=== PATIENT | female | born 1990 | race Caucasian/White ===

== ENCOUNTER 2018-07-21 08:24 | Outpatient (CLI) | payer MEDICARE, MEDICAID, SELFPAY ==
[2018-07-21 09:42] LABS: Lithium 0.74 mmol/L (0.60-1.20)
[2018-07-21 10:02] LABS: Anion Gap 6.5 mmol/L (3-11); BUN 23 mg/dL (7-18); CO2 29.5 mmol/L (21.0-32.0); CREATININE 1.41 mg/dL (0.55-1.02); Calcium 9.4 mg/dL (8.5-10.1); Chloride 106 mmol/L (98-107); Estimated GFR 44.41 (mL/min/1.73m2); Glucose 85 mg/dL (70-100); Potassium 4.6 mmol/L (3.5-5.1); Sodium 142 mmol/L (136-145); TSH 4.15 uIU/mL (0.358-3.74)
== END 2018-07-21 08:44 ==
PROVIDERS: PCP Family Medicine; Visit Provider Psychiatry & Neurology Child & Adolescent Psychiatry
DX: F70 Mild intellectual disabilities (principal); Z51.81 Encounter for therapeutic drug level monitoring; Z79.899 Other long term (current) drug therapy
CPT/HCPCS: 36415; 80048; 80178; 84443

== ENCOUNTER 2018-10-10 10:25 | Outpatient (CLI) | payer MEDICARE, MEDICAID, SELFPAY ==
[2018-10-10 10:58] LABS: TROPONIN-I 9.7 ug/mL (4.0-12.0)
== END 2018-10-10 10:45 ==
PROVIDERS: PCP Family Medicine; Visit Provider Psychiatry & Neurology Child & Adolescent Psychiatry
DX: F70 Mild intellectual disabilities (principal); Z51.81 Encounter for therapeutic drug level monitoring; Z79.899 Other long term (current) drug therapy
CPT/HCPCS: 36415; 80156

== ENCOUNTER → 2018-10-12 10:40 | Outpatient (BNVA) | payer MEDICARE, MEDICAID, SELFPAY | PROVIDERS: PCP Family Medicine; Visit Provider Psychiatry & Neurology Neurology | DX: Q85.1 Tuberous sclerosis (principal); Z85.528 Personal history of other malignant neoplasm of kidney; Z90.5 Acquired absence of kidney | CPT/HCPCS: 99213 ==

== ENCOUNTER → 2018-11-20 10:21 | Outpatient (BNVA) | payer MEDICARE, MEDICAID, SELFPAY | PROVIDERS: PCP Family Medicine; Visit Provider Nurse Practitioner Gerontology | DX: Q85.1 Tuberous sclerosis (principal); Z85.528 Personal history of other malignant neoplasm of kidney; Z90.5 Acquired absence of kidney | CPT/HCPCS: 99214 ==

== ENCOUNTER 2018-11-27 00:24 | Outpatient (CLI) | payer MEDICARE, MEDICAID, SELFPAY ==
--- NOTE | 2018-11-27 09:54 | DI.MRI_ITS ---
SYMPTOM/DIAGNOSIS: MONITORING OF RENAL MASS, R93.5 ABDOMEN MRI: Comparison is made with 09/30/17. Pre and post contrast sequences were performed. The kidneys have somewhat enlarged and multi lobulated appearance. There are numerous small bilateral cysts. No suspicious mass is identified. There is no evidence of hydronephrosis or perinephric collection. There is scarring at the lower pole of the left kidney related to partial nephrectomy. The visualized portions of the liver, spleen, pancreas and adrenals are unremarkable. IMPRESSION: Bilateral renal cysts. No suspicious mass is identified.
[2018-11-27] MEDS: Gadoterate meglumine 20 ML VIAL 10 ML IVP (10:42)
== END 2018-11-27 00:44 ==
PROVIDERS: PCP Family Medicine; Visit Provider Nurse Practitioner Gerontology
DX: R93.5 Abnormal findings on diagnostic imaging of other abdominal regions, including retroperitoneum (principal); N28.81 Hypertrophy of kidney; N28.1 Cyst of kidney, acquired
CPT/HCPCS: 74183

== ENCOUNTER 2019-01-16 13:34 | Outpatient (REF) | payer MEDICARE, MEDICAID, SELFPAY ==
[2019-01-16 19:57] LABS: TSH (W/Ref FT4) 5.02 uIU/mL (0.358-3.74)
[2019-01-16 20:16] LABS: FREE T4 0.59 ng/dL (0.76-1.46)
[2019-01-16 22:31] LABS: Hemoglobin A1C 5.2 % (4.5-6.2)
[2019-01-18 04:58] LABS: Vitamin D 25 Total 35.3 ng/ml (30-100)
[2019-01-18 10:59] LABS: FSH 8.5 mIU/ml; Prolactin 201.5 ng/ml
== END 2019-01-16 13:54 ==
LOC: NCHCN 13:34
PROVIDERS: PCP Family Medicine; Visit Provider Family Medicine
DX: E21.3 Hyperparathyroidism, unspecified (principal); N91.0 Primary amenorrhea; Z79.899 Other long term (current) drug therapy; F31.9 Bipolar disorder, unspecified
CPT/HCPCS: 82306; 83001; 83036; 84146; 84439; 84443

== ENCOUNTER → 2019-11-26 10:33 | Outpatient (BNVA) | payer MEDICARE, MEDICAID, SELFPAY | PROVIDERS: PCP Family Medicine; Referring Provider Family Medicine; Visit Provider Psychiatry & Neurology Neurology | DX: I44.0 Atrioventricular block, first degree (principal); Q85.1 Tuberous sclerosis | CPT/HCPCS: 99213 ==

== ENCOUNTER 2019-11-29 02:09 | Outpatient (CLI) | payer MEDICARE, MEDICAID, SELFPAY | END 2019-11-29 02:29 | PROVIDERS: PCP Family Medicine; Visit Provider Psychiatry & Neurology Neurology | DX: I44.0 Atrioventricular block, first degree (principal) | CPT/HCPCS: 93005; 93010 ==

== ENCOUNTER → 2019-12-05 13:53 | Outpatient (BNVA) | payer MEDICARE, MEDICAID, SELFPAY | PROVIDERS: PCP Family Medicine; Referring Provider Family Medicine; Visit Provider Nurse Practitioner Gerontology | DX: Q85.1 Tuberous sclerosis (principal); Z85.528 Personal history of other malignant neoplasm of kidney; Z90.5 Acquired absence of kidney; R30.0 Dysuria | CPT/HCPCS: 81003; 99214 ==

== ENCOUNTER 2019-12-05 17:11 | Outpatient (REF) | payer MEDICARE, MEDICAID, SELFPAY | END 2019-12-05 17:31 | LOC: LBN 17:11 | PROVIDERS: PCP Family Medicine; Visit Provider Nurse Practitioner Gerontology | DX: R30.0 Dysuria (principal) | CPT/HCPCS: 87086 ==

== ENCOUNTER 2020-03-04 11:26 | Outpatient (REF) | payer MEDICARE, MEDICAID, SELFPAY ==
[2020-03-04 19:38] LABS: HCT 37.3 % (36.0-46.0); HGB 12.1 g/dL (11.2-15.7); MCH 31.3 pg (27.0-33.0); MCHC 32.4 % (32.0-36.0); MCV 96.6 fL (80-95); MPV 10.4 fL (8.0-11.0); Platelet Count 260 10^3/uL (130-400); RBC 3.86 10^6/uL (3.93-5.22); RDW 12.7 % (11.7-14.6); RDW-SD 45.1 fL
[2020-03-04 20:07] LABS: Hemoglobin A1C 5.2 % (3.8-5.6)
[2020-03-04 20:23] LABS: ALT 20 U/L (14-59); AST 12 U/L (15-37); Albumin 4.2 g/dL (3.4-5.0); Alkaline Phosphatase 139 U/L (46-116); Anion Gap 12.2 mmol/L (3-11); BUN 20 mg/dL (7-18); Bilirubin, Total 0.3 mg/dL (0.2-1.0); CO2 23.8 mmol/L (21.0-32.0); CREATININE 1.18 mg/dL (0.55-1.02); Calcium 8.8 mg/dL (8.5-10.1); Calculated LDL 128 mg/dL (<100); Chloride 105 mmol/L (98-107); Cholesterol 213 mg/dL (<200); Estimated GFR 53.78 (mL/min/1.73m2); Glucose 103 mg/dL (74-106); HDL Cholesterol 54 mg/dL (40-60); Potassium 4.9 mmol/L (3.5-5.1); Sodium 141 mmol/L (136-145); TSH (W/Ref FT4) 0.96 uIU/mL (0.36-3.74); Total Protein 7.2 g/dL (6.4-8.2); Triglyceride 155 mg/dL (<150)
== END 2020-03-04 11:46 ==
LOC: NCHCN 11:26
PROVIDERS: PCP Family Medicine; Visit Provider Family Medicine
DX: E03.9 Hypothyroidism, unspecified (principal); N18.3 Chronic kidney disease, stage 3 (moderate); R56.9 Unspecified convulsions; F63.89 Other impulse disorders; Z79.899 Other long term (current) drug therapy
CPT/HCPCS: 80053; 80061; 85027; 83036; 84443

== ENCOUNTER → 2020-11-24 11:02 | Outpatient (BNVA) | payer MEDICARE, MEDICAID, SELFPAY | PROVIDERS: PCP Family Medicine; Referring Provider Family Medicine; Visit Provider Psychiatry & Neurology Neurology | DX: Q85.1 Tuberous sclerosis (principal); I44.0 Atrioventricular block, first degree | CPT/HCPCS: 99215 ==

== ENCOUNTER 2020-11-24 13:17 | Outpatient (CLI) | payer MEDICARE, MEDICAID, SELFPAY ==
--- NOTE | 2020-11-24 13:30 | RT.EKG_ITS ---
APPROVED REPORT Exam: Resting ECG Reason for Exam: Tuberous sclerosis Patient Location: O HR:73 bpm ECG Measurements Heart Rate 73 AXIS IL 237 P 50 QRSd 100 QRS 55 QT 365 T 47 QTc 401 Conclusion Sinus rhythm...normal P axis, V-rate 60- 99 Prolonged IL interval...IL >210, V-rate 50- 90
== END 2020-11-24 13:18 | disposition home or self-care (01) ==
PROVIDERS: PCP Family Medicine; Visit Provider Psychiatry & Neurology Neurology
DX: Q85.1 Tuberous sclerosis (principal)
CPT/HCPCS: 99215; 93005; 93010

== ENCOUNTER → 2020-12-08 10:20 | Outpatient (BNVA) | payer MEDICARE, MEDICAID, SELFPAY | PROVIDERS: PCP Family Medicine; Referring Provider Family Medicine; Visit Provider Nurse Practitioner Gerontology | DX: Q85.1 Tuberous sclerosis (principal); Z90.5 Acquired absence of kidney; Z85.528 Personal history of other malignant neoplasm of kidney | CPT/HCPCS: 99214 ==

== ENCOUNTER 2021-01-12 02:00 | Outpatient (CLI) | payer MEDICARE, MEDICAID, SELFPAY ==
[2021-01-12 09:27] LABS: CREATININE 1.4 mg/dL (0.55-1.02); Estimated GFR 44.15 (mL/min/1.73m2)
[2021-01-12] MEDS: Gadoterate meglumine 20 ML VIAL IVP (09:46)
--- NOTE | 2021-01-12 10:00 | DI.MRI_ITS ---
Exam(s) MR ABDOMEN WO/W EXAM: MR ABDOMEN WO/W CLINICAL HISTORY: monitoring renal mass, abnl findings mri, R93.5, partial left nephrectomy 2012 TECHNIQUE: Multiplanar multisequence MRI was performed with both pre and post contrast infused seque nces. Contrast injected sequences were performed following IV injection of 20 cc of Dotarem. FINDINGS: VISUALIZED LUNG BASES: Trace pleural fluid bilaterally. There is no ascites evident. LIVER: Liver size is normal. There are no ominous focal hepatic lesions. No dilatation of intrahepa tic ducts. BILIARY: There are again noted multiple tiny calculi filling the entire gallbladder lumen, not associ ated with gallbladder wall edema nor pericholecystic fluid. The CBD is not dilated. PANCREAS: There is no evidence of pancreatic mass nor dilatation of the pancreatic duct. SPLEEN: Spleen is not enlarged and there are no intrasplenic lesions.Splenic and portal veins are pat ent ADRENALS: There are no significant adrenal masses. KIDNEYS: There are multiple small benign cysts again noted in both kidneys. The largest cyst is in t he anterior cortex of the left kidney and measures 1.3 x 1.2 cm. There is again noted scarring of th e left renal cortex from prior partial nephrectomy. No evidence of new solid mass in either kidney. Both renal veins are patent. There is no hydronephr osis nor hydroureter. ABDOMINAL AORTA: Not enlarged and there is no significant para-aortic adenopathy. ANTERIOR ABDOMINAL WALL/GI: There is no evidence of significant anterior abdominal wall hernia in the field of view of this study.Is no evidence of obvious bowel obstruction. OSSEOUS: There are no lytic osseous lesions in the field of view of this study. IMPRESSION: 1. Again noted is evidence of previous partial left nephrectomy. No evidence of recurrence solid mas s in the left kidney. Bilateral benign renal cysts are again noted. No hydronephrosis. 2. Cholelithiasis. Again noted are bundle tiny calculi in the gallbladder lumen. There is no eviden ce of acute cholecystitis nor dilatation of the biliary tree, both intra and extrahepatic. 3. No focal hepatic lesions nor splenomegaly nor adrenal masses. DATA REPOSITORY:
== END 2021-01-12 02:20 ==
PROVIDERS: PCP Family Medicine; Visit Provider Nurse Practitioner Gerontology
DX: K80.20 Calculus of gallbladder without cholecystitis without obstruction (principal); N28.1 Cyst of kidney, acquired; R93.5 Abnormal findings on diagnostic imaging of other abdominal regions, including retroperitoneum; Q85.1 Tuberous sclerosis; Z90.5 Acquired absence of kidney; Z85.528 Personal history of other malignant neoplasm of kidney
CPT/HCPCS: 74183; 82565

== ENCOUNTER 2021-04-21 15:00 | Outpatient (REF) | payer MEDICARE, MEDICAID, SELFPAY ==
--- NOTE | 2021-04-21 13:15 | PAPFT_PTH ---
PATIENT: Odette Shultz LOC: [facility]#:[id number] AGE/SX: 31/F ROOM: RE04/21/[address]: Krunal Burleson : 1990 BED: DIS: 04/21/2021 SPEC #: [id number] RECD: 04/22/21 13:05 STATUS: JOÃO RESara #: [id number] ANTONIO: 04/21/21 13:[address]: Krunal Burleson DEPT: [facility] Cytology RECD BY: Julieta Stringer Tissues: 1 - CX/ENDOCX FOR PAP SMEARS Procedures: PAP THIN PREP/[facility] Screening HPV DNA PROBE Comments: [id number]
[2021-04-21 22:07] LABS: HCT 39.7 % (36.0-46.0); HGB 12.8 g/dL (11.2-15.7); MCH 31.1 pg (27.0-33.0); MCHC 32.2 % (32.0-36.0); MCV 96.4 fL (80-95); MPV 10.3 fL (8.0-11.0); Platelet Count 268 10^3/uL (130-400); RBC 4.12 10^6/uL (3.93-5.22); RDW 12.5 % (11.7-14.6); RDW-SD 44.3 fL; WBC 9.29 10^3/uL (4.4-10.8)
[2021-04-21 22:30] LABS: ALT 22 U/L (14-59); AST 13 U/L (15-37); Albumin 4.2 g/dL (3.4-5.0); Alkaline Phosphatase 140 U/L (46-116); Anion Gap 5.6 mmol/L (3-11); BUN 16 mg/dL (7-18); Bilirubin, Total 0.2 mg/dL (0.2-1.0); CO2 29.4 mmol/L (21.0-32.0); CREATININE 1.2 mg/dL (0.55-1.02); Chloride 106 mmol/L (98-107); Glucose 93 mg/dL (74-106); Potassium 4.7 mmol/L (3.5-5.1); Sodium 141 mmol/L (136-145); TSH (W/Ref FT4) 1.79 uIU/mL (0.36-3.74); Total Protein 7.8 g/dL (6.4-8.2)
[2021-04-21 23:08] LABS: Hemoglobin A1C 5.5 % (<5.7)
== END 2021-04-21 15:01 | disposition home or self-care (01) ==
LOC: NCHCN 15:00
PROVIDERS: PCP Family Medicine; Visit Provider Family Medicine
DX: E03.9 Hypothyroidism, unspecified (principal); Z12.4 Encounter for screening for malignant neoplasm of cervix; R03.0 Elevated blood-pressure reading, without diagnosis of hypertension; Z11.51 Encounter for screening for human papillomavirus (HPV); Z01.419 Encounter for gynecological examination (general) (routine) without abnormal findings
CPT/HCPCS: 80053; 85027; 88142; 83036; 84443; 87624

== ENCOUNTER → 2021-11-23 11:01 | Outpatient (BNVA) | payer MEDICARE, MEDICAID, SELFPAY | PROVIDERS: PCP Family Medicine; Referring Provider Family Medicine; Visit Provider Psychiatry & Neurology Neurology | DX: Q85.1 Tuberous sclerosis (principal); I44.0 Atrioventricular block, first degree | CPT/HCPCS: 99214 ==

== ENCOUNTER → 2022-02-24 10:47 | Outpatient (BNVA) | payer MEDICARE, MEDICAID, SELFPAY | PROVIDERS: PCP Family Medicine; Referring Provider Family Medicine; Visit Provider Nurse Practitioner Gerontology | DX: L29.2 Pruritus vulvae (principal); Q85.1 Tuberous sclerosis; Z90.5 Acquired absence of kidney; Z85.528 Personal history of other malignant neoplasm of kidney | CPT/HCPCS: 81003; 99214 ==

== ENCOUNTER 2022-04-26 16:44 | Outpatient (REF) | payer MEDICARE, MEDICAID, SELFPAY ==
[2022-04-26 14:49] LABS: Abs Immature Grans 0.01 10^3/uL (0.0-0.06); Absolute Basophil Count 0.06 10^3/uL (0.0-0.2); Absolute Eosinophil Count 0.08 10^3/uL (0.0-0.7); Absolute Lymphocyte Count 1.28 10^3/uL (1.2-3.4); Absolute Monocyte Count 0.41 10^3/uL (0.1-0.8); Absolute Neutrophil Count 2.55 10^3/uL (1.2-6.7); Basophils % 1.4; Eosinophils % 1.8; HCT 38.9 % (36.0-46.0); HGB 12.9 g/dL (11.2-15.7); Immature Grans % 0.2; Lymphocytes % 29.2; MCH 31.9 pg (27.0-33.0); MCHC 33.2 % (32.0-36.0); MCV 96 fL (80-95); MPV 9.7 fL (8.0-11.0); Monocytes % 9.3; Neutrophils % 58.1; Platelet Count 274 10^3/uL (130-400); RBC 4.05 10^6/uL (3.93-5.22); RDW 12.5 % (11.7-14.6); RDW-SD 43.4 fL; WBC 4.39 10^3/uL (4.4-10.8)
[2022-04-26 15:17] LABS: ALT 28 U/L (14-59); AST 14 U/L (15-37); Albumin 4.2 g/dL (3.4-5.0); Alkaline Phosphatase 150 U/L (46-116); Anion Gap 7.6 mmol/L (3-11); BUN 13 mg/dL (7-18); Bilirubin, Total 0.3 mg/dL (0.2-1.0); CO2 29.4 mmol/L (21.0-32.0); CREATININE 1.3 mg/dL (0.55-1.02); Calcium 9.5 mg/dL (8.5-10.1); Calculated LDL 130 mg/dL (<100); Chloride 103 mmol/L (98-107); Cholesterol 212 mg/dL (<200); Estimated GFR 56.03 (mL/min/1.73m2); Glucose 100 mg/dL (74-106); HDL Cholesterol 65 mg/dL (40-60); Potassium 4.9 mmol/L (3.5-5.1); Sodium 140 mmol/L (136-145); TSH (W/Ref FT4) 1.39 uIU/mL (0.36-3.74); Total Protein 7.7 g/dL (6.4-8.2); Triglyceride 88 mg/dL (<150)
[2022-04-26 15:27] LABS: Hemoglobin A1C 5.7 % (<5.7)
[2022-04-26 23:28] LABS: Prolactin 149.1 ng/mL (See Note)
== END 2022-04-26 16:45 | disposition home or self-care (01) ==
LOC: NCHCN 16:44
PROVIDERS: PCP Family Medicine; Visit Provider Family Medicine
DX: E03.9 Hypothyroidism, unspecified (principal); R56.9 Unspecified convulsions; N18.30 Chronic kidney disease, stage 3 unspecified; N91.0 Primary amenorrhea; Z00.00 Encounter for general adult medical examination without abnormal findings
CPT/HCPCS: 80053; 80061; 83036; 84146; 84443; 85025

== ENCOUNTER 2022-05-03 18:44 | Outpatient (REF) | payer MEDICARE, MEDICAID, SELFPAY ==
[2022-05-03 19:48] LABS: COMMENT (LAB VIEW ONLY) 84.81 mg/dL; PROTEIN 9.2 mg/dL
== END 2022-05-03 18:45 | disposition home or self-care (01) ==
LOC: NCHCN 18:44
PROVIDERS: PCP Family Medicine; Visit Provider Family Medicine
DX: N18.30 Chronic kidney disease, stage 3 unspecified (principal)
CPT/HCPCS: 82565; 84156

== ENCOUNTER 2022-11-02 17:24 | Outpatient (REF) | payer MEDICARE, MEDICAID, SELFPAY ==
[2022-11-02 19:38] LABS: COMMENT (LAB VIEW ONLY) 14.07 mg/dL; PROTEIN < 6.0 mg/dL
== END 2022-11-02 17:25 | disposition home or self-care (01) ==
LOC: NCHCN 17:24
PROVIDERS: PCP Family Medicine; Visit Provider Family Medicine
DX: N18.30 Chronic kidney disease, stage 3 unspecified (principal)
CPT/HCPCS: 82565; 84156

== ENCOUNTER → 2022-11-22 11:13 | Outpatient (BNVA) | payer MEDICARE, MEDICAID, SELFPAY | PROVIDERS: PCP Family Medicine; Visit Provider Psychiatry & Neurology Neurology | DX: L98.9 Disorder of the skin and subcutaneous tissue, unspecified (principal); Q85.1 Tuberous sclerosis; I44.0 Atrioventricular block, first degree | CPT/HCPCS: 99214 ==

== ENCOUNTER → 2023-03-02 09:44 | Outpatient (BNVA) | payer MEDICARE, MEDICAID, SELFPAY | PROVIDERS: PCP Family Medicine; Visit Provider Nurse Practitioner Gerontology | DX: Q85.1 Tuberous sclerosis (principal); Z90.5 Acquired absence of kidney; Z85.528 Personal history of other malignant neoplasm of kidney | CPT/HCPCS: 81003; 99213 ==

== ENCOUNTER 2023-04-28 15:00 | Outpatient (REF) | payer MEDICARE, MEDICAID, SELFPAY | END 2023-04-28 15:01 | disposition home or self-care (01) | LOC: LBN 15:00 | PROVIDERS: PCP Family Medicine; Visit Provider Obstetrics & Gynecology | DX: N90.89 Other specified noninflammatory disorders of vulva and perineum (principal) | CPT/HCPCS: 87480; 87510; 87660 ==

== ENCOUNTER 2023-05-12 04:04 | Outpatient (CLI) | payer MEDICARE, MEDICAID, SELFPAY ==
[2023-05-12 11:47] LABS: Abs Immature Grans 0.01 10^3/uL (0.0-0.06); Absolute Basophil Count 0.08 10^3/uL (0.0-0.2); Absolute Eosinophil Count 0.06 10^3/uL (0.0-0.7); Absolute Lymphocyte Count 1.61 10^3/uL (1.2-3.4); Absolute Monocyte Count 0.81 10^3/uL (0.1-0.8); Absolute Neutrophil Count 5.03 10^3/uL (1.2-6.7); Basophils % 1.1; Eosinophils % 0.8; HCT 39.5 % (36.0-46.0); Immature Grans % 0.1; Lymphocytes % 21.2; MCH 31.9 pg (27.0-33.0); MCHC 32.9 % (32.0-36.0); MCV 97 fL (80-95); MPV 9.4 fL (8.0-11.0); Monocytes % 10.7; Neutrophils % 66.1; Platelet Count 278 10^3/uL (130-400); RBC 4.08 10^6/uL (3.93-5.22); RDW-SD 46.3 fL
[2023-05-12 12:02] LABS: TROPONIN-I 13.4 ug/mL (4.0-12.0)
[2023-05-12 12:07] LABS: ALT 22 U/L (14-59); AST 14 U/L (15-37); Albumin 4.1 g/dL (3.4-5.0); Alkaline Phosphatase 121 U/L (46-116); Anion Gap 7.3 mmol/L (3-11); BUN 20 mg/dL (7-18); Bilirubin, Total 0.4 mg/dL (0.2-1.0); CO2 26.7 mmol/L (21.0-32.0); CREATININE 1.3 mg/dL (0.55-1.02); Calcium 9.3 mg/dL (8.5-10.1); Chloride 101 mmol/L (98-107); Estimated GFR 55.68 (mL/min/1.73m2); Glucose 126 mg/dL (74-106); Potassium 4.6 mmol/L (3.5-5.1); Sodium 135 mmol/L (136-145); Total Protein 8.1 g/dL (6.4-8.2)
[2023-05-12 12:15] LABS: TSH (W/Ref FT4) 1.36 uIU/mL (0.36-3.74)
[2023-05-12 12:52] LABS: Hemoglobin A1C 5.6 % (<5.7)
[2023-05-12 20:28] LABS: Estradiol 27 pg/mL (See Note)
[2023-05-12 21:53] LABS: FSH 7.3 mIU/mL (See Note)
[2023-05-13 00:01] LABS: Prolactin 170.6 ng/mL (See Note)
== END 2023-05-12 04:05 | disposition home or self-care (01) ==
LOC: LBO 04:05
PROVIDERS: Obstetrics & Gynecology; PCP Family Medicine; Visit Provider Nurse Practitioner Psychiatric/Mental Health
DX: E84.9 Cystic fibrosis, unspecified (principal); R73.03 Prediabetes; N91.2 Amenorrhea, unspecified; N92.0 Excessive and frequent menstruation with regular cycle; F84.9 Pervasive developmental disorder, unspecified
CPT/HCPCS: 36415; 80053; 80156; 82670; 83001; 83036; 84146; 84443; 85025

== ENCOUNTER 2023-06-16 15:05 | Outpatient (REF) | payer MEDICARE, MEDICAID, SELFPAY ==
[2023-06-16 18:28] LABS: Abs Immature Grans 0.01 10^3/uL (0.0-0.06); Absolute Basophil Count 0.08 10^3/uL (0.0-0.2); Absolute Eosinophil Count 0.13 10^3/uL (0.0-0.7); Absolute Lymphocyte Count 1.71 10^3/uL (1.2-3.4); Basophils % 1.3; Eosinophils % 2.2; HCT 38.1 % (36.0-46.0); HGB 12.5 g/dL (11.2-15.7); Immature Grans % 0.2; Lymphocytes % 28.4; MCH 31.6 pg (27.0-33.0); MCHC 32.8 % (32.0-36.0); MCV 97 fL (80-95); MPV 10.3 fL (8.0-11.0); Monocytes % 14.9; Platelet Count 261 10^3/uL (130-400); RBC 3.95 10^6/uL (3.93-5.22); RDW 12.6 % (11.7-14.6); WBC 6.03 10^3/uL (4.4-10.8)
[2023-06-16 18:42] LABS: FREE T4 0.88 ng/dL (0.76-1.46); TSH 1.14 uIU/mL (0.36-3.74)
== END 2023-06-16 15:06 | disposition home or self-care (01) ==
LOC: NCHCN 15:05
PROVIDERS: PCP Family Medicine; Visit Provider Family Medicine
DX: E03.9 Hypothyroidism, unspecified (principal); D70.9 Neutropenia, unspecified
CPT/HCPCS: 84439; 84443; 85025

== ENCOUNTER 2023-07-01 01:41 | Outpatient (CLI) | payer MEDICARE, MEDICAID, SELFPAY ==
[2023-07-06 02:26] LABS: 17-Hydroxyprogesterone 51 ng/dL
[2023-07-06 15:39] LABS: Testosterone, Total 30 ng/dL (8-60)
[2023-07-07 16:56] LABS: Dehydroepiandrosterone (DHEA) 6.2 ng/mL (<10)
== END 2023-07-01 01:42 | disposition home or self-care (01) ==
LOC: LOS 02:05
PROVIDERS: PCP Family Medicine; Visit Provider Family Medicine
DX: E28.1 Androgen excess (principal)
CPT/HCPCS: 36415; 83498; 84403; 82626

== ENCOUNTER 2023-10-19 05:07 | Outpatient (CLI) | payer MEDICARE, MEDICAID, SELFPAY ==
[2023-10-19 16:29] LABS: Abs Immature Grans 0.02 10^3/uL (0.0-0.06); Absolute Basophil Count 0.06 10^3/uL (0.0-0.2); Absolute Eosinophil Count 0.22 10^3/uL (0.0-0.7); Absolute Lymphocyte Count 2.24 10^3/uL (1.2-3.4); Absolute Monocyte Count 0.57 10^3/uL (0.1-0.8); Basophils % 0.9; Eosinophils % 3.2; HCT 38.7 % (36.0-46.0); HGB 12.7 g/dL (11.2-15.7); Immature Grans % 0.3; Lymphocytes % 32.9; MCH 31.8 pg (27.0-33.0); MCHC 32.8 % (32.0-36.0); MCV 97 fL (80-95); MPV 9.2 fL (8.0-11.0); Monocytes % 8.4; Neutrophils % 54.3; Platelet Count 257 10^3/uL (130-400); RDW 12.4 % (11.7-14.6); RDW-SD 44.3 fL; WBC 6.81 10^3/uL (4.4-10.8)
[2023-10-19 17:05] LABS: TROPONIN-I 11.2 ug/mL (4.0-12.0)
[2023-10-19 17:06] LABS: ALT 35 U/L (14-59); AST 18 U/L (15-37); Albumin 3.5 g/dL (3.4-5.0); Alkaline Phosphatase 112 U/L (46-116); Anion Gap 9.1 mmol/L (3-11); BUN 22 mg/dL (7-18); Bilirubin, Total 0.1 mg/dL (0.2-1.0); CO2 29.9 mmol/L (21.0-32.0); CREATININE 1.2 mg/dL (0.55-1.02); Calcium 9.1 mg/dL (8.5-10.1); Chloride 103 mmol/L (98-107); Glucose 116 mg/dL (74-106); Potassium 4.2 mmol/L (3.5-5.1); Sodium 142 mmol/L (136-145); Total Protein 7.3 g/dL (6.4-8.2)
[2023-10-23 10:21] LABS: Testosterone, Total 25 ng/dL (8-60)
[2023-10-24 17:20] LABS: 17-Hydroxyprogesterone <40 ng/dL
[2023-10-25 09:30] LABS: 25-Hydroxy D Total 54 ng/mL; 25-Hydroxy D2 5.3 ng/mL; 25-Hydroxy D3 49 ng/mL
== END 2023-10-19 05:08 | disposition home or self-care (01) ==
LOC: LBO 05:07
PROVIDERS: PCP Family Medicine; Visit Provider Nurse Practitioner Psychiatric/Mental Health
DX: F70 Mild intellectual disabilities (principal); Z79.84 Long term (current) use of oral hypoglycemic drugs; E28.1 Androgen excess
CPT/HCPCS: 36415; 80053; 82306; 83498; 84403; 80156; 82626; 83036; 85025

== ENCOUNTER → 2023-12-22 09:52 | Outpatient (BNVA) | payer MEDICARE, MEDICAID, SELFPAY | PROVIDERS: PCP Family Medicine; Visit Provider Psychiatry & Neurology Neurology | DX: Q85.1 Tuberous sclerosis (principal); I44.0 Atrioventricular block, first degree | CPT/HCPCS: 99213 ==

== ENCOUNTER 2024-01-12 14:53 | Outpatient (CLI) | payer MEDICARE, MEDICAID, SELFPAY ==
--- NOTE | 2024-01-12 14:45 | RT.EKG_ITS ---
APPROVED REPORT Exam: Resting ECG Reason for Exam: FIRST DEGREE AV BLOCK MONITORING Patient Location: O HR:58 bpm ECG Measurements Heart Rate 58 AXIS OK 191 P 60 QRSd 88 QRS 47 QT 360 T 57 QTc 354 Conclusion Sinus rhythm...normal P axis, V-rate 50- 99 Probable left atrial enlargement...P >50mS, <-0.10mV V1 Otherwise normal ECG
== END 2024-01-12 14:54 | disposition home or self-care (01) ==
PROVIDERS: PCP Family Medicine; Visit Provider Psychiatry & Neurology Neurology
DX: I44.0 Atrioventricular block, first degree (principal)
CPT/HCPCS: 93005; 93010

== ENCOUNTER → 2024-01-13 00:24 | Outpatient (CLI) | payer MEDICARE, MEDICAID, SELFPAY ==
--- NOTE | 2024-01-13 | DI.US_ITS ---
Exam(s) US RENAL EXAM: US RENAL CLINICAL HISTORY: CHRONIC KIDNEY DISEASE, N18.9. TECHNIQUE: Frausto scale, color and spectral Doppler were used. COMPARISON: MR MR ABDOMEN WO/W from 01/12/2021 FINDINGS: Renal size in cm: Right: 9.6. Left: 8.2. Echogenicity: Normal. Hydronephrosis: There is mild dilatation of the left renal collecting system. Cyst or mass: There are bilateral simple renal cysts present. No follow-up is recommended. There is a question of a 2 cm masslike area in the midpole of the right kidney. This may represent normal pa renchyma. Possibility of mass cannot be excluded sonographically. Nephrolithiasis: No. Other findings: None. Bladder:Normal. Ureteral jets: Right: Visualized and unremarkable. Left: Visualized and unremarkable. Prevoid vol:178 cc Postvoid vol:61 cc Renal color flow: Symmetric and within normal limits. IMPRESSION: 1. Question of a 2 cm masslike area in the midpole of the right kidney. Further evaluation with MRI of the abdomen without and with contrast is recommended. 2. Bilateral simple renal cysts. 3. Mild dilatation of the left renal collecting system which may represent mild hydronephrosis. Unexpected findings DATA REPOSITORY:
== END ==
PROVIDERS: PCP Family Medicine; Visit Provider Student in an Organized Health Care Education/Training Program
DX: N18.9 Chronic kidney disease, unspecified (principal)
CPT/HCPCS: 76770

== ENCOUNTER → 2024-02-22 01:46 | Outpatient (CLI) | payer MEDICARE, MEDICAID, SELFPAY ==
--- NOTE | 2024-02-22 06:30 | DI.MRI_ITS ---
Exam(s) MR ABDOMEN WO/W EXAM: MR ABDOMEN WO/W CLINICAL HISTORY: monitoring renal mass,tuberous sclerosis,h/o partial nephrectomy and renal TECHNIQUE: Multiplanar multisequence MRI was performed with both pre and post contrast infused seque nces. Contrast injected sequences were performed following IV injection of 20 cc of Dotarem. COMPARISON: MR MR ABDOMEN WO/W from 01/12/2021 US US RENAL from 01/13/2024 FINDINGS: VISUALIZED LUNG BASES: Trace pleural fluid bilaterally evident. There is no ascites evident. LIVER: Normal size. There are no ominous focal hepatic lesions. No dilated intrahepatic ducts. BILIARY: There are again noted innumerable tiny calculi filling the entire gallbladder lumen, not ass ociated with obvious gallbladder wall edema nor pericholecystic fluid. The CBD is not dilated. Ther e are no obvious calculi within the nondilated CBD. The CBD is not dilated. PANCREAS: There is no evidence of pancreatic mass nor dilatation of the pancreatic duct. SPLEEN: Spleen is not enlarged and there are no intrasplenic lesions.Splenic and portal veins are pat ent ADRENALS: There are no significant adrenal masses. KIDNEYS: There are multiple small benign cortical cysts again noted in both kidneys. These benign cy sts do not require further workup. There is again noted some scarring in the left renal cortex from prior partial nephrectomy. No evidence of recurrent mass at this level. Also no evidence of solid m ass in the right kidney, given apparent findings on recent ultrasound examination. No hydronephrosis . Both renal veins are patent.. ABDOMINAL AORTA: Not enlarged and there is no significant para-aortic adenopathy. ANTERIOR ABDOMINAL WALL/GI: There is no evidence of significant anterior abdominal wall hernia in the field of view of this study.Is no evidence of obvious bowel obstruction. OSSEOUS: There are no lytic osseous lesions in the field of view of this study. IMPRESSION: 1. No evidence of solid renal mass in the right kidney, as suspected on recent ultrasound exam. Also no evidence of recurrent solid mass in the left kidney in this patient who has undergone partial lef t nephrectomy. 2. Benign-appearing small cysts are noted in both kidneys common these cysts not requiring further wo rkup. 3. Cholelithiasis again noted. No evidence of acute cholecystitis nor dilatation of the biliary tree , both intra and extrahepatic. DATA REPOSITORY:
[2024-02-22] MEDS: Gadoterate meglumine 20 ML VIAL IVP (08:33)
[2024-02-22] MEDS: Normal Saline - Diluent 50 ML VIAL IJ (08:33)
== END ==
PROVIDERS: PCP Family Medicine; Visit Provider Nurse Practitioner Gerontology
DX: Z90.5 Acquired absence of kidney; Z85.528 Personal history of other malignant neoplasm of kidney; Q85.1 Tuberous sclerosis; K80.80 Other cholelithiasis without obstruction
CPT/HCPCS: 74183

== ENCOUNTER → 2024-02-29 09:52 | Outpatient (BNVA) | payer MEDICARE, MEDICAID, SELFPAY | PROVIDERS: PCP Family Medicine; Visit Provider Nurse Practitioner Gerontology | DX: Q85.1 Tuberous sclerosis (principal); Z90.5 Acquired absence of kidney; Z85.528 Personal history of other malignant neoplasm of kidney | CPT/HCPCS: 81003; 99213 ==

== ENCOUNTER 2024-09-27 02:26 | Outpatient (CLI) | payer MEDICARE, MEDICAID, SELFPAY ==
[2024-09-27 14:42] LABS: HCT 38.8 % (36.0-46.0); MCH 31.5 pg (27.0-33.0); MCHC 33.5 % (32.0-36.0); MCV 94 fL (80-95); MPV 8.9 fL (8.0-11.0); Platelet Count 313 10^3/uL (130-400); RBC 4.13 10^6/uL (3.93-5.22); RDW 12.8 % (11.7-14.6); WBC 9.88 10^3/uL (4.4-10.8)
[2024-09-27 16:30] LABS: Anion Gap 6.9 mmol/L (3-11); BUN 21 mg/dL (7-18); CO2 31.1 mmol/L (21.0-32.0); CREATININE 1.6 mg/dL (0.55-1.02); Calcium 9.1 mg/dL (8.5-10.1); Calculated LDL 100 mg/dL (<100); Chloride 105 mmol/L (98-107); Cholesterol 185 mg/dL (<200); Estimated GFR 43.13 (mL/min/1.73m2); Glucose 105 mg/dL (74-106); HDL Cholesterol 50 mg/dL (>or=50); Potassium 4.4 mmol/L (3.5-5.1); Sodium 143 mmol/L (136-145); TSH 1.65 uIU/mL (0.36-3.74); Triglyceride 176 mg/dL (<150)
[2024-09-27 22:09] LABS: T4, Free 1.1 ng/dL (0.8-2.2)
== END 2024-09-27 02:27 | disposition home or self-care (01) ==
PROVIDERS: PCP Student in an Organized Health Care Education/Training Program; Visit Provider Student in an Organized Health Care Education/Training Program
DX: E78.5 Hyperlipidemia, unspecified (principal); R73.03 Prediabetes
CPT/HCPCS: 36415; 80048; 80061; 85027; 84439; 84443

== ENCOUNTER → 2024-12-25 09:32 | Outpatient (BNVA) | payer MEDICARE, MEDICAID, SELFPAY | PROVIDERS: PCP Student in an Organized Health Care Education/Training Program; Visit Provider Psychiatry & Neurology Neurology | DX: Q85.1 Tuberous sclerosis (principal); I44.0 Atrioventricular block, first degree | CPT/HCPCS: 99214 ==

== ENCOUNTER 2025-02-26 01:00 | Outpatient (CLI) | payer MEDICARE, MEDICAID, SELFPAY ==
--- NOTE | 2025-02-26 | DI.MRI_ITS ---
Exam(s) MR ABDOMEN WO/W EXAM: MR ABDOMEN WO/W CLINICAL HISTORY: Rt renal mass, N28.89; characterize 2 cm mass like area in midpole rt TECHNIQUE: Multiplanar multisequence MRI of the Abdomen was performed. CONTRAST MATERIAL: IV Contrast: 20 mL of Dotarem contrast administered. COMPARISON: CT ABD PELVIS WITH CONTRAST from 09/22/2016 CT ABD PELVIS WITH CONTRAST from 09/30/2017 MR MR ABDOMEN WO/W from 01/12/2021 FINDINGS: Lung bases: Unremarkable. Liver: Unremarkable. Pancreas: Unremarkable. Gallbladder and Bile Ducts: Multiple stones fill the gallbladder. Common bile duct is normal in diameter. No common duct stones. Adrenals: Unremarkable. Kidneys: Innumerable small bilateral renal cysts. No suspicious solid masses. Spleen: Unremarkable. Aorta: Unremarkable. Soft Tissues: Unremarkable. Bone: Unremarkable. Lymph Nodes: Unremarkable. Stomach and bowel: Unremarkable. Peritoneal cavity: Unremarkable. No evidence of ascites. IMPRESSION: Innumerable bilateral renal cysts. No suspicious solid masses. DATA REPOSITORY:
[2025-02-26] MEDS: Gadoterate meglumine 20 ML VIAL IVP (10:24)
[2025-02-26] MEDS: Normal Saline - Diluent 50 ML VIAL 25 ML IJ (10:25)
== END 2025-02-26 01:20 ==
PROVIDERS: PCP Student in an Organized Health Care Education/Training Program; Visit Provider Registered Nurse Nephrology
DX: N28.1 Cyst of kidney, acquired (principal)
CPT/HCPCS: 74183

== ENCOUNTER → 2025-02-27 10:16 | Outpatient (BNVA) | payer MEDICARE, MEDICAID, SELFPAY | PROVIDERS: PCP Student in an Organized Health Care Education/Training Program; Visit Provider Nurse Practitioner Gerontology | DX: Q85.1 Tuberous sclerosis (principal); Z90.5 Acquired absence of kidney; Z85.528 Personal history of other malignant neoplasm of kidney | CPT/HCPCS: 99213 ==

== ENCOUNTER 2025-03-22 13:36 | Outpatient (REF) | payer MEDICARE, MEDICAID, SELFPAY ==
[2025-03-22 15:18] LABS: Glucose Negative (Negative)
[2025-03-22 15:36] LABS: RBC Negative HPF (0-2)
== END 2025-03-22 13:37 | disposition home or self-care (01) ==
LOC: NCHCN 13:36
PROVIDERS: PCP Student in an Organized Health Care Education/Training Program; Visit Provider Student in an Organized Health Care Education/Training Program
DX: R30.0 Dysuria (principal)
CPT/HCPCS: 81003; 81015